=== PATIENT | female | born 1990 | race Caucasian/White ===

== ENCOUNTER 2018-11-07 00:22 | Emergency (ER) | payer SELFPAY ==
[~2018-11-07] VITALS: Ht 162.6 cm; Wt 54.5 kg
[2018-11-07 00:37] VITALS: Ht 162.6 cm; Wt 54.5 kg
[2018-11-07 02:11] LABS: BASOPHILS 0.1 % (0-2); EOSINOPHILS 0.4 % (0-7); HEMATOCRIT 33.3 % (36.0-48.0); HEMOGLOBIN 11.5 g/dL (12-16); IMMATURE GRANULOCYTES 0.2 % (0-5); LYMPHOCYTES 11.4 % (15-50); MCHC 34.5 g/dL (31.0-37.0); MCV 89.8 fL (80.0-100.0); MEAN PLATELET VOLUME 10.3 fL (7.4-10.4); NEUTROPHILS 82.9 % (40-80); PLATELET COUNT 211 10x3/uL (130-400); RBC 3.71 10x6/uL (4.00-5.40); RDW 13.5 % (11.5-14.5); WBC 14.8 10x3/uL (4.8-10.8)
[2018-11-07 02:37] LABS: HCG SERUM POSITIVE (NEGATIVE)
[2018-11-07 02:38] LABS: ALBUMIN 3.4 g/dL (3.4-5.0); ALKALINE PHOSPHATASE 59 U/L (46-116); ALT (SGPT) 25 U/L (10-68); BILIRUBIN - TOTAL 0.58 mg/dL (0.2-1.3); CALC OSMOLALITY 269 mosm/kg (275-300); CALCIUM 8.3 mg/dL (8.5-10.1); CARBON DIOXIDE 24.5 mmol/L (21.0-32.0); CHLORIDE - SERUM 101 mmol/L (98-107); CREATININE - SERUM 0.7 mg/dL (0.6-1.3); GLUCOSE 78 mg/dL (74-106); POTASSIUM - SERUM 3.4 mmol/L (3.5-5.1); PROTEIN - SERUM 7.1 g/dL (6.4-8.2); SODIUM 136 mmol/L (136-145); UREA NITROGEN 9 mg/dL (7-18); eGFR NON AFRICAN AMERICAN > 90 mL/min (90-120)
[2018-11-07 03:02] LABS: HCG - QUANTITATIVE (MATERNAL) 39653 mIU/mL
[2018-11-07 03:55] LABS: UDS - AMPHET NEGATIVE QUAL (NEGATIVE); UDS - BARB NEGATIVE QUAL (NEGATIVE); UDS - BENZO NEGATIVE QUAL (NEGATIVE); UDS - COCAINE NEGATIVE QUAL (NEGATIVE); UDS - OPIATE NEGATIVE QUAL (NEGATIVE); UDS - PCP NEGATIVE QUAL (NEGATIVE); UDS - THC POSITIVE QUAL (NEGATIVE)
[2018-11-07 04:06] LABS: APPEARANCE HAZY (CLEAR); BILIRUBIN NEGATIVE (NEGATIVE); COLOR YELLOW (YELLOW); GLUCOSE NEGATIVE (NEGATIVE); KETONE LARGE mg/dL (NEGATIVE); NITRITE NEGATIVE (NEGATIVE); PROTEIN 1+ mg/dL (NEGATIVE); UROBILINOGEN NORMAL (NORMAL)
[2018-11-07 04:07] LABS: BACTERIA MODERATE /hpf (NONE SEEN); EPITHELIAL CELLS 0-5 /hpf (0-5); RED CELLS - URINE 0-5 /hpf (0-5); WHITE CELLS - URINE 0-5 /hpf (0-5)
[2018-11-07] MEDS ORDERED: ZOFRAN ODT4 MG/UDTAB PO (04:30)
[2018-11-07 04:50] VITALS: BP 115/76
== END 2018-11-07 04:50 | disposition home or self-care (01) ==
LOC: D.ER 00:22
PROVIDERS: Family Medicine
DX: S06.0X9A Concussion with loss of consciousness of unspecified duration, initial encounter (principal); Y04.2XXA Assault by strike against or bumped into by another person, initial encounter; Y93.89 Activity, other specified; Y92.89 Other specified places as the place of occurrence of the external cause; O26.899 Other specified pregnancy related conditions, unspecified trimester; Z3A.00 Weeks of gestation of pregnancy not specified; E86.9 Volume depletion, unspecified

== ENCOUNTER 2019-05-04 14:36 | Emergency (ER) | payer MEDICAID ==
[~2019-05-04] VITALS: Ht 162.6 cm; Wt 54.5 kg
[~2019-05-04 14:36] MED LIST: ZOFRAN ODT4 MG/UDTAB PO
[2019-05-04 14:55] VITALS: Ht 162.6 cm; Wt 54.5 kg
[2019-05-04] MEDS ORDERED: KEFLEX500 MG PO (15:47)
[2019-05-04 16:38] VITALS: BP 137/90
== END 2019-05-04 16:39 | disposition home or self-care (01) ==
LOC: D.ER 14:36
DX: S00.531A Contusion of lip, initial encounter (principal); Y33.XXXA Other specified events, undetermined intent, initial encounter; Z72.0 Tobacco use

== ENCOUNTER 2019-06-23 17:08 | Emergency (ER) | payer MEDICAID ==
[~2019-06-23] VITALS: Ht 162.6 cm; Wt 54.5 kg
[2019-06-23 17:18] VITALS: Ht 162.6 cm; Wt 54.5 kg
[2019-06-23 20:40] VITALS: BP 102/73
== END 2019-06-23 20:40 | disposition home or self-care (01) ==
LOC: D.ER 17:08
DX: H10.9 Unspecified conjunctivitis (principal); J06.9 Acute upper respiratory infection, unspecified